=== PATIENT | male | born 1945 ===

== ENCOUNTER → 2018-07-23 19:09 | Outpatient (REF) | payer MEDICARE, SELFPAY ==
[2018-07-23 19:57] LABS: Add Manual Diff / Slide Review NO; Basophils Absolute Auto 100 /uL (0-100); Eosinophils Absolute Auto 100 /uL (0-450); Eosinophils Percent Auto 2.3 % (2-4); Hematocrit 45.2 % (41-53); Hemoglobin 15.4 g/dL (13.5-17.5); Lymphocytes Absolute Auto 1400 /uL (1100-4500); Mean Corpuscular HGB Conc 34.2 % (30-36); Mean Corpuscular Hemoglobin 30.5 PG (26-34); Mean Corpuscular Volume 89.3 fL (80-100); Monocytes Absolute Auto 700 /uL (0-900); Monocytes Percent Auto 12.3 % (3-14); Neutrophils Absolute Auto 3700 /uL (1500-7000); Neutrophils Percent Auto 61.4 % (50-75); Platelet Count 259 X10^3/uL (150-400); Red Blood Cell Count 5.06 X10^6/uL (4.5-5.9); Red Cell Distribution Width 13.9 % (11.6-14.8)
[2018-07-23 20:28] LABS: HEMOLYSIS < 15 (0-50)
[2018-07-23 20:37] LABS: Alanine Aminotransferase 27 IU/L (21-72); Albumin 3.9 g/dL (3.5-5.0); Albumin Globulin Ratio 1.3 (1.0-2.8); Alkaline Phosphatase 101 U/L (38-126); Aspartate Aminotransferase 21 IU/L (17-59); BUN Creatinine Ratio 22.5 (6-22); Bilirubin Total 0.5 mg/dL (0.2-1.3); Blood Urea Nitrogen 27 mg/dL (9-20); Calcium 9.5 mg/dL (8.4-10.2); Carbon Dioxide 28 mmol/L (22-32); Chloride 107 mmol/L (98-107); Cholesterol 171 mg/dL (140-199); Estimated Glomerular Filt Rate 59.3 mL/min (>60); Globulin 3.1 g/dL (1.7-4.1); Glucose 91 mg/dL (80-110); HDL Cholesterol 26 mg/dL (40-60); LDL Cholesterol Calculated 117 mg/dL (<100); Potassium 4.2 mmol/L (3.4-5.1); Sodium 142 mmol/L (137-145); Triglycerides 142 mg/dL (35-150)
[2018-07-23 20:56] LABS: T4 Total Thyroxine 9.56 ug/dL (5.5-11.0); T7 (Free Thyroxine Index) 3.42 (1.65-3.89); Triiodothryronine T3 Uptake 35.8 % (23.5-40.5)
[2018-07-23 21:10] LABS: Thyroid Stimulating Hormone 0.86 uIU/mL (0.47-4.68)
[2018-07-24 12:33] LABS: Uric Acid 7.7 mg/dL (3.5-8.5)
== END ==
LOC: LAB 19:09
PROVIDERS: Visit Provider Family Medicine Geriatric Medicine
DX: E78.5 Hyperlipidemia, unspecified (principal); M10.9 Gout, unspecified; R73.01 Impaired fasting glucose; E29.1 Testicular hypofunction; E03.9 Hypothyroidism, unspecified; Z00.00 Encounter for general adult medical examination without abnormal findings
CPT/HCPCS: 36415; 80053; 80061; 84153; 84403; 84436; 84443; 84479; 84550; 85025